=== PATIENT | female | born 1990 | race Caucasian/White ===

== ENCOUNTER 2018-11-30 21:25 | Emergency (ER) | payer OTHER ==
[~2018-11-30] VITALS: Ht 165.1 cm; Wt 61.4 kg
[2018-11-30 21:28] VITALS: Ht 165.1 cm; Wt 61.4 kg
[2018-12-01 01:44] VITALS: BP 122/89; PULSE 90; RESP 15
[2018-12-01] MEDS ORDERED: IBUP-1542 PO (01:47)
[2018-12-01] MEDS ORDERED: CYCL10TA7 PO (01:47)
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
== END 2018-12-01 02:29 | disposition home or self-care (01) ==
LOC: E/R 21:25
DX: M25.60 Stiffness of unspecified joint, not elsewhere classified (principal)
CPT/HCPCS: 72125